=== PATIENT | male | born 1985 | race Caucasian/White ===

== ENCOUNTER 2017-03-12 14:24 | Emergency (ER) | payer OTHER ==
[~2017-03-12 14:24] MED LIST: AMLO5TAB2 PO; ATEN25TA PO
--- NOTE | 2017-03-12 14:42 | PD ---
Physical Exam Time Seen by Provider: 14:41 Narrative 31yo M c/o cough, body aches, nasal congestion, fever, and vomiting since last night. vomited x 4 today. Fever 102.0 today. Denies chest arredondo, SOB, and pain. Patient seen in triage. VS reviewed. Patient awaiting bed placement. MDM Supervised Visit with ESTHER: Jacquie Pnadya Mar 12, 2017 14:42
[2017-03-12 14:44] VITALS: BP 131/82; PULSE 103; RESP 16; TEMP 100.9; O2SAT 98
[2017-03-12 15:27] LABS: AUTOMATED NEUTROPHIL # 3.7 TH/MM3 (1.8-7.7); BASOPHIL # 0.1 TH/MM3 (0-0.2); EOSINOPHIL # 0.2 TH/MM3 (0-0.4); EOSINOPHIL % 3.1 % (0.0-4.0); HEMATOCRIT 48.3 % (39.0-51.0); HEMO FLAGS DIFF FINAL; LYMPH % 12.3 % (9.0-44.0); LYMPHOCYTE # 0.7 TH/MM3 (1.0-4.8); MEAN CELL VOLUME 83.9 FL (80.0-100.0); MEAN CORPUSCULAR HEMOGLOBIN 28.3 PG (27.0-34.0); MEAN CORPUSCULAR HGB CONC 33.7 % (32.0-36.0); MONO % 14.9 % (0.0-8.0); NEUT % 68.7 % (16.0-70.0); PLATELET COUNT 191 TH/MM3 (150-450); RED BLOOD COUNT 5.76 MIL/MM3 (4.50-5.90); WHITE BLOOD COUNT 5.3 TH/MM3 (4.0-11.0)
--- NOTE | 2017-03-12 15:35 | RADRPT ---
EXAM DATE/TIME: 03/12/2017 15:20 [facility] COMPARISON: No previous studies available for comparison. INDICATIONS : Fever. Cough and vomiting for the past few days. MEDICAL HISTORY : Hypertension. SURGICAL HISTORY : None. ENCOUNTER: Initial ACUITY: 3 days PAIN SCORE: 0/10 LOCATION: Bilateral chest FINDINGS: PA and lateral views of the chest demonstrate the lungs to be symmetrically aerated without evidence of mass, infiltrate or effusion. The cardiomediastinal contours are unremarkable. Osseous structure s are intact. CONCLUSION: Normal examination. Willie Antoine Jr., MD on March 12, 2017 at 15:30 Board Certified Radiologist. This report was verified electronically.
[2017-03-12 15:52] LABS: BICARBONATE 25.8 MEQ/L (21.0-32.0); POTASSIUM 3.9 MEQ/L (3.5-5.1)
--- NOTE | 2017-03-12 16:40 | PD ---
HPI . flu like symptoms Chief Complaint: Cold / Flu Symptoms Time Seen by Provider: 16:39 Travel History International Travel<30 days: No Contact w/Intl Traveler<30days: No Traveled to known affect area: No History of Present Illness HPI 31 yr old male here with c/o body aches, cough, nasal congestion, fever and vomiting x 4. Workup initiated in triage and patient is + for influenza A. PFSH Past Medical History Cardiovascular Problems: Yes (mitral valve prolapse) Hypertension: Yes Reproductive: Yes (prostatitis) Past Surgical History Oral Surgery: Yes (wisdom teeth) Social History Alcohol Use: Yes (occasional) Tobacco Use: No Substance Use: No Allergies-Medications (Allergen,Severity, Reaction): Coded Allergies: Sulfa (Sulfonamide Antibiotics) (Unverified Allergy, Unknown, rash, ) Reported Meds & Prescriptions Reported Meds & Active Scripts Active Tamiflu (Oseltamivir Phosphate) 75 Mg Cap 75 Mg PO BID 5 Days Atenolol 25 Mg Tab 25 Mg PO DAILY Amlodipine (Amlodipine Besylate) 5 Mg Tab 5 Mg PO DAILY Review of Systems General / Constitutional: Positive: Fever, Chills Eyes: No: Visual changes HENT: No: Headaches Cardiovascular: No: Chest Pain or Discomfort Respiratory: Positive: Cough, No: Shortness of Breath Gastrointestinal: Positive: Nausea, Vomiting, No: Abdominal Pain Genitourinary: No: Dysuria Musculoskeletal: No: Pain Skin: No Rash Neurologic: No: Weakness Psychiatric: No: Depression Endocrine: No: Polydipsia Hematologic/Lymphatic: No: Easy Bruising Physical Exam Narrative GENERAL: AAO x 3, no acute distress, Well-nourished, well-developed patient. SKIN: Warm and dry. No visible rashes or bruising. HEAD: Normocephalic and atraumatic. EYES: No scleral icterus. No injection or drainage. ENT: No nasal drainage noted. Mucous membranes pink. Airway patent. NECK: Supple, trachea midline. No JVD. No lymphadenopathy CARDIOVASCULAR: Regular rate and rhythm without murmurs, gallops, or rubs. RESPIRATORY: Breath sounds equal bilaterally. No accessory muscle use. No rhonchi or rales. GASTROINTESTINAL: Abdomen soft, non-tender, nondistended. no rebound or guarding EXTREMITIES: No cyanosis or edema. BACK: No obvious deformity. NEURO: CN II-12 intact, PSYCH: AAO x 3, normal affect. Data Data Last Documented VS Vital Signs Date Time Temp Pulse Resp B/P (MAP) Pulse Ox O2 Delivery O2 Flow Rate FiO2 03/12/17 14:44 100.9 103 16 131/82 (98) 98 Orders Orders Influenzae A/B Antigen (03/12/17 14:42) Basic Metabolic Panel (Bmp) (03/12/17 14:42) Complete Blood Count With Diff (03/12/17 14:42) Chest, Pa & Lat (03/12/17 14:42) Acetaminophen (Tylenol) (03/12/17 16:45) Labs Laboratory Tests Test 03/12/17 14:50 White Blood Count 5.3 TH/MM3 Red Blood Count 5.76 MIL/MM3 Hemoglobin 16.3 GM/DL Hematocrit 48.3 % Mean Corpuscular Volume 83.9 FL Mean Corpuscular Hemoglobin 28.3 PG Mean Corpuscular Hemoglobin Concent 33.7 % Red Cell Distribution Width 13.0 % Platelet Count 191 TH/MM3 Mean Platelet Volume 8.1 FL Neutrophils (%) (Auto) 68.7 % Lymphocytes (%) (Auto) 12.3 % Monocytes (%) (Auto) 14.9 % Eosinophils (%) (Auto) 3.1 % Basophils (%) (Auto) 1.0 % Neutrophils # (Auto) 3.7 TH/MM3 Lymphocytes # (Auto) 0.7 TH/MM3 Monocytes # (Auto) 0.8 TH/MM3 Eosinophils # (Auto) 0.2 TH/MM3 Basophils # (Auto) 0.1 TH/MM3 CBC Comment DIFF FINAL Differential Comment Blood Urea Nitrogen 11 MG/DL Creatinine 1.15 MG/DL Random Glucose 106 MG/DL Calcium Level 8.7 MG/DL Sodium Level 139 MEQ/L Potassium Level 3.9 MEQ/L Chloride Level 106 MEQ/L Carbon Dioxide Level 25.8 MEQ/L Anion Gap 7 MEQ/L Estimat Glomerular Filtration Rate 74 ML/MIN MDM Medical Decision Making Medical Screen Exam Complete: Yes Emergency Medical Condition: Yes Medical Record Reviewed: Yes Differential Diagnosis influenza, pneumonia, less likely sepsis Narrative Course 31 yr old male here with influenza A. Tylenol provided. Last Impressions Chest X-Ray 03/12/17 1442 Signed Impressions: Service Date/Time: Sunday, March 12, 2017 15:20 - CONCLUSION: Normal examination. Willie Antoine Jr., MD Laboratory Tests Test 03/12/17 14:50 White Blood Count 5.3 TH/MM3 Red Blood Count 5.76 MIL/MM3 Hemoglobin 16.3 GM/DL Hematocrit 48.3 % Mean Corpuscular Volume 83.9 FL Mean Corpuscular Hemoglobin 28.3 PG Mean Corpuscular Hemoglobin Concent 33.7 % Red Cell Distribution Width 13.0 % Platelet Count 191 TH/MM3 Mean Platelet Volume 8.1 FL Neutrophils (%) (Auto) 68.7 % Lymphocytes (%) (Auto) 12.3 % Monocytes (%) (Auto) 14.9 % Eosinophils (%) (Auto) 3.1 % Basophils (%) (Auto) 1.0 % Neutrophils # (Auto) 3.7 TH/MM3 Lymphocytes # (Auto) 0.7 TH/MM3 Monocytes # (Auto) 0.8 TH/MM3 Eosinophils # (Auto) 0.2 TH/MM3 Basophils # (Auto) 0.1 TH/MM3 CBC Comment DIFF FINAL Differential Comment Blood Urea Nitrogen 11 MG/DL Creatinine 1.15 MG/DL Random Glucose 106 MG/DL Calcium Level 8.7 MG/DL Sodium Level 139 MEQ/L Potassium Level 3.9 MEQ/L Chloride Level 106 MEQ/L Carbon Dioxide Level 25.8 MEQ/L Anion Gap 7 MEQ/L Estimat Glomerular Filtration Rate 74 ML/MIN Discussed influenza with patient. Advised supportive care and tamiflu. F/U with PCP. Diagnosis Primary Impression: Influenza Patient Instructions: General Instructions Departure Forms: Tests/Procedures, Work Release Enter return to work date: Mar 14, 2017 Additional Instructions: Please return to emergency department if your symptoms return or worsen. Follow up with your primary care provider. Take medications as prescribed. Med/Other Pt SpecificInfo: Prescription(s) given Scripts Oseltamivir (Tamiflu) 75 Mg Cap 75 MG PO BID for Mgmt Viral Infection for 5 Days, CAP 0 Refills Prov: Maureen Trejo MD 03/12/17 Disposition: 01 DISCHARGE HOME Condition: Stable Vidya Morales Mar 12, 2017 16:40
[2017-03-12] MEDS ORDERED: OSEL75 PO (16:43)
[2017-03-12] MEDS ORDERED: ACETAMINOPHEN 325 MG TAB PO ONE (16:45)
== END 2017-03-12 17:26 | disposition home or self-care (01) ==
LOC: NEPK 14:24
DX: J11.1 Influenza due to unidentified influenza virus with other respiratory manifestations (principal); R11.2 Nausea with vomiting, unspecified; I34.1 Nonrheumatic mitral (valve) prolapse; I10 Essential (primary) hypertension; Z88.2 Allergy status to sulfonamides; Z88.8 Allergy status to other drugs, medicaments and biological substances; Z79.899 Other long term (current) drug therapy
CPT/HCPCS: 71020; 80048; 85025; 87804; 99284